=== PATIENT | male | born 1970 | race Caucasian/White ===

== ENCOUNTER 2019-01-20 13:52 | Emergency (ER) | payer OTHER ==
[~2019-01-20 13:52] MED LIST: CIP500 PO; ONDA4TAB PO; ROSU20TA23 PO
--- NOTE | 2019-01-20 13:59 | ER Report ---
History and Physical Time Seen By MD: 13:59 Hx. of Stated Complaint: patient smashed his left thumb whilst stacking weights HPI/ROS Right handed he shouldn't was helping a friend load plates onto a weight lifting bar when 170 pounds worth of plates fell onto his left thumb. He is currently complaining of pain in the distal aspect of his left thumb. No other injuries. 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 No other injuries. Remainder of the 14 system rev: Yes Allergies: Coded Allergies: Penicillins (Verified Allergy, 07/29/12) Home Meds Active Scripts Cephalexin Monohydrate (CEPHALEXIN) 500 Mg Cap, 500 MG PO BID for 10 Days, #20 CAP 0 Refills Prov:KARRIE DE LA ROSA MD 01/20/19 Reported Medications Ondansetron (Zofran Odt) 4 Mg/Udtablet Tab.rapdis, 4 MG PO Q8H PRN, #10 07/29/12 Ciprofloxacin (Cipro) 500 Mg Tab, 500 MG PO BID, #6 07/29/12 Rosuvastatin Calcium (Crestor) 20 Mg Tablet, 20 MG PO DAILY 07/29/12 Reviewed Nurses Notes: Yes Old Medical Records Reviewed: Yes Hx Smoking: No Hx Substance Use Disorder: No Hx Alcohol Use: No Constitutional Vital Sign - Last 24 Hours 01/20/19 13:56 Temp 98.5 Pulse 81 Resp 20 B/P (MAP) 126/87 Pulse Ox 89 Physical Exam General appearance: alert no distress Left hand: There is no significant swelling. There is an obvious nailbed injury to the left distal thumb. There is moderte TTP of the left distal thumb. No other TTP of the hand. Full ROM. t Skin: avulsed nailbed of left thumb Neurologic exam: Tendon function is intact. Vascular exam: Normal pulses and capillary refill in the fingers DIFFERENTIAL DIAGNOSIS: After history and physical exam differential diagnosis was considered for hand injury including contusion, fracture, ligamentous and tendon injuries. Medical Decision Making ED Course/Re-evaluation ED Course Open tuft fracture of the left thumb. Also with avulsed nail, so nail was removed after performing digital block. Wound was cleaned and dressed. Pt. was given Keflex for open fracture. Thumb was bandaged and splinted. Procedure Procedure: Laceration Verbal consent was obtained from the patient. Prior to evaluating and cleaning the wound, a digital block was performed using 8ml of 1% lidocaine without e pinephine. The wound was scrubbed, draped and explored to its base with a gloved finger. The nail was avulsed beyond repair, and was removed. The procedure was performed by myself. No closure was needed. Bleeding was controlled with surgicel and a bandage. A splint was placed. Decision to Disposition Date: January 20, 2019 Decision to Disposition Time: 16:29 Depart Departure Latest Vital Signs Vital Signs Date Time Temp Pulse Resp B/P (MAP) Pulse Ox O2 Delivery O2 Flow Rate FiO2 01/20/19 13:56 98.5 81 20 126/87 89 Impression: Primary Impression: Open fracture of tuft of distal phalanx of left thumb Additional Impression: Nailbed avulsion Condition: Improved Disposition: HOME OR SELF-CARE New Scripts Cephalexin Monohydrate (CEPHALEXIN) 500 Mg Cap 500 MG PO BID for 10 Days, #20 CAP 0 Refills Prov: KARRIE DE LA ROSA MD 01/20/19 Patient Instructions: Nail Avulsion (ED), Open Finger Fracture (Malik) Problem Qualifiers KARRIE DE LA ROSA MD January 20, 2019 13:59
--- NOTE | 2019-01-20 14:57 | RADIOLOGY IMAGING REPORT ---
FACILITY: [facility] [place] PATIENT NAME: Storm Prieto : 1970 MR: [id number] V: [id number] EXAM DATE: ORDERING PHYSICIAN: KARRIE DE LA ROSA TECHNOLOGIST: Location: [facility] [place] Patient: Storm Prieto : 1970 Visit/Account:[id number] Date of Sevice: 01/20/2019 EXAMINATION: Three views of the left thumb. HISTORY: Injury. Slammed distal phalanx of thumb with a weight. COMPARISON: None. FINDINGS: There is a comminuted fracture through the tuft of the distal phalanx of the left thumb, with mildly displaced osseous fragments. No other acute osseous findings. Normal alignment at the MCP and IP joints. Soft tissue swelling along the distal left thumb. IMPRESSION: Comminuted fracture of the tuft of the distal phalanx of the left thumb. Report Dictated By: Kwame Welch MD at 01/20/2019 2:46 PM Report E-Signed By: Kwame Welch MD at 01/20/2019 2:52 PM WSN:[id number]
[2019-01-20 15:30] VITALS: BP 110/78
[2019-01-20] MEDS ORDERED: CEPHALEXIN MONO 500 MG CAP PO ONE (16:05)
[2019-01-20] MEDS ORDERED: CEPH500C24 PO (16:14)
== END 2019-01-20 16:21 | disposition home or self-care (01) ==
LOC: ER 14:05
DX: S62.522A Displaced fracture of distal phalanx of left thumb, initial encounter for closed fracture (principal); S61.102A Unspecified open wound of left thumb with damage to nail, initial encounter; W20.8XXA Other cause of strike by thrown, projected or falling object, initial encounter; Z79.899 Other long term (current) drug therapy
CPT/HCPCS: 99283